=== PATIENT | male | born 1995 | race African-American/Black ===

== ENCOUNTER 2024-04-17 04:04 | Emergency (ER) | payer SELFPAY ==
[~2024-04-17] VITALS: Ht 170.2 cm; Wt 76.0 kg
[2024-04-17 04:10] VITALS: BP 123/72; PULSE 80; RESP 16; TEMP 98.1; O2SAT 100
[2024-04-17] MEDS ORDERED: IBUP-2029 MT (06:22)
[2024-04-17] MEDS: KETOROLAC 30MG/ML VIAL IM ONE (06:30)
== END 2024-04-17 07:11 | disposition home or self-care (01) ==
LOC: ER 04:04
DX: S00.81XA Abrasion of other part of head, initial encounter (principal); M54.2 Cervicalgia; F41.9 Anxiety disorder, unspecified; V89.2XXA Person injured in unspecified motor-vehicle accident, traffic, initial encounter; Y92.410 Unspecified street and highway as the place of occurrence of the external cause; Y92.89 Other specified places as the place of occurrence of the external cause; Y99.8 Other external cause status
CPT/HCPCS: 99283; 96372; J1885